=== PATIENT | male | born 1995 | race Caucasian/White ===

== ENCOUNTER 2018-01-10 10:31 | Emergency (ER) | payer BC ==
[2018-01-10 11:01] VITALS: BP 124/72
--- NOTE | 2018-01-10 11:28 | UC ---
UC General HPI - HPI Summary HPI Summary: Pt presents with c/o nasal congestion, left ear feeling as though it is "plugged ", sinus pressure and pain. Pt also has c/o constipation. Pt has history of constipation and "GI problems" He reports that he has had three colonoscopy's but not been diagnosed with "anything". Pt reports last BM this morning, and is passing flatus. - History of Current Complaint Chief Complaint: UCGeneralIllness Stated Complaint: RESP ISSUE/ BOWEL ISSUE Time Seen by Provider: 01/10/18 11:08 Hx Obtained From: Patient Onset/Duration: Gradual Onset, Lasting Days, Still Present Timing: Constant Onset Severity: Mild Current Severity: Mild Pain Intensity: 2 Associated Signs & Symptoms: Positive: Other - constipation - Allergy/Home Medications Allergies/Adverse Reactions: Allergies Allergy/AdvReac Type Severity Reaction Status Date / Time Penicillins Allergy anaph Verified 01/10/18 10:57 Home Medications: Home Medications Sennosides [Senna Laxative] 1 tab PO DAILY 01/10/18 [History Confirmed 01/10/18] PMH/Surg Hx/FS Hx/Imm Hx Previously Healthy: Yes - Surgical History Surgical History: Yes Surgery Procedure, Year, and Place: Tonsils & adenoids (2000) Shattered growth plate in left elbow (2001) Endoscopy and colonoscopy (2007) Appendix removal ( 2008), GI exploratory surgeries. RIGHT HIP SURGERY MAR 25, 2014 (FOR DYSPLASIA) , RIGHT HIP SURGERY 09/28/14 (nine surgeries R hip, last will be 10/17/15) - Family History Known Family History: Positive: Cardiac Disease - Social History Occupation: Student Lives: With Family Alcohol Use: Occasionally Substance Use Type: None Smoking Status (MU): Never Smoked Tobacco Have You Smoked in the Last Year: No - Immunization History Vaccination Up to Date: Yes Review of Systems Constitutional: Negative Skin: Negative Eyes: Negative ENT: Sinus Congestion, Sinus Pain/Tenderness Respiratory: Negative Cardiovascular: Negative Gastrointestinal: Other - constipation Genitourinary: Negative Motor: Negative Neurovascular: Negative Musculoskeletal: Negative Neurological: Negative Psychological: Negative Is Patient Immunocompromised?: No All Other Systems Reviewed And Are Negative: Yes Physical Exam Triage Information Reviewed: Yes Appearance: Well-Appearing Vital Signs: Initial Vital Signs Temp 97.5 F 01/10/18 10:58 Pulse 80 01/10/18 10:58 Resp 17 01/10/18 10:58 BP 124/72 01/10/18 10:58 Pulse Ox 100 01/10/18 10:58 Vital Signs Reviewed: Yes Eye Exam: Normal ENT Exam: Normal ENT: Positive: Nasal congestion, Sinus tenderness Dental Exam: Normal Neck exam: Normal Respiratory Exam: Normal Cardiovascular Exam: Normal Abdominal Exam: Normal Bowel Sounds: Positive: Present Musculoskeletal Exam: Normal Neurological Exam: Normal Psychological Exam: Normal Skin Exam: Normal Course/Dx - Course Course Of Treatment: I discussed with the pt the need to f/u with GI provider. Pt verbalized understanding and agreed to plan of care - Differential Dx - Multi-Symptom Differential Diagnoses: Other - allergic rhinitis Provider Diagnoses: allergic rhinitis. constipation Discharge - Sign-Out/Discharge Documenting (check all that apply): Patient Departure - Discharge Plan Condition: Stable Disposition: HOME Prescriptions: Cetirizine HCl/Pseudoephedrine [Zyrtec-D Tablet] 1 each PO DAILY #10 tab Patient Education Materials: Constipation (ED), Allergic Rhinitis (ED), Earache (ED) Referrals: [facility] [Outside] - If Needed No Primary Care Phys,NOPCP [Primary Care Provider] - - Billing Disposition and Condition Condition: STABLE Disposition: Home Attestation Statement User Type: Provider - I was available for consult. This patient was seen by the PAO. The patient was not presented to, seen by, or examined by me. -Meghann
== END 2018-01-10 11:43 | disposition home or self-care (01) ==
LOC: UCEAST 10:31
DX: J30.9 Allergic rhinitis, unspecified (principal); K59.00 Constipation, unspecified; Z88.0 Allergy status to penicillin
CPT/HCPCS: 99212; G0463